=== PATIENT | female | born 1995 | race Hispanic/Latino ===

== ENCOUNTER 2023-02-27 13:30 | Emergency (ER) | payer OTHER, SELFPAY ==
[2023-02-27 13:33] VITALS: BP 116/78; PULSE 77; RESP 16; TEMP 36.8; O2SAT 100
--- NOTE | 2023-02-27 14:20 | ED.GENADULT ---
HPI - General Adult General Chief complaint: Neck Pain/Injury Stated complaint: neck pain Time Seen by Provider: 02/27/23 14:19 Source: patient Mode of arrival: ambulatory Limitations: no limitations History of Present Illness HPI narrative: 27 years old white female came to the ED by private car complaining of right neck pain with limited range of motion, woke up with it this morning. Patient was doing okay last night. She denies any fever, chills, nausea, vomiting, headache, trouble swallowing or breathing. Patient denies any recent new physical activities. Review of Systems Review of Systems: All systems reviewed & are unremarkable except as noted in HPI and below Exam Narrative: General appearance: Well-developed, well-nourished Skin: Normal color Head: Normocephalic, nontraumatic Eyes: Clear conjunctiva ENT: Oropharynx normal, ears normal, nose normal Neck: Mild diffuse tenderness right side of neck and right upper. No bruises, no swelling or rash. Limited range of motion to the left Chest and respiratory: Airway patent, no respiratory distress, no accessory muscle use Heart: Regular rate/rhythm A Vascular: Normal peripheral pulses, normal capillary refill. Musculoskeletal: As above Neurologic: Alert and oriented ?3, MD [facility]ER[facility] IMMUNOLOGY is normal as tested, no gross motor deficit Course Reevaluation(s) Reevaluation #1: Feeling much better after Toradol IM and Valium orally. Date: 02/27/23 Time: 14:52 Vital Signs Vital signs: Vital Signs Temperature 36.8 C 02/27/23 13:33 Pulse Rate 77 02/27/23 13:33 Respiratory Rate 16 02/27/23 13:33 Blood Pressure 116/78 02/27/23 13:33 Pulse Oximetry 100 02/27/23 13:33 Oxygen Delivery Room Air 02/27/23 13:33 Temperature 36.8 C 02/27/23 13:33 Pulse Rate 77 02/27/23 13:33 Respiratory Rate 16 02/27/23 13:33 Blood Pressure 116/78 02/27/23 13:33 Pulse Oximetry 100 02/27/23 13:33 Oxygen Delivery Room Air 02/27/23 13:33 Medical Decision Making [facility] Narrative Medical decision making narrative: Patient presents with right-sided neck pain, wake up with it this morning. She denies any abnormality before going to bed last night. No recent trauma physical examination showed slight tenderness right side of neck without any significant other physical findings. Musculoskeletal strain/sprain is my concern. In the ED patient received 60 mg of Toradol IM, 5 mg of Valium p.o. with remarkable improvement. Patient to be discharged on naproxen and Flexeril. Differential Diagnosis Differential Diagnosis: Cervical strain, sprain. Vital Signs Vital Signs: Vital Signs Temperature 36.8 C 02/27/23 13:33 Pulse Rate 77 02/27/23 13:33 Respiratory Rate 16 02/27/23 13:33 Blood Pressure 116/78 02/27/23 13:33 Pulse Oximetry 100 02/27/23 13:33 Oxygen Delivery Room Air 02/27/23 13:33 Temperature 36.8 C 02/27/23 13:33 Pulse Rate 77 02/27/23 13:33 Respiratory Rate 16 02/27/23 13:33 Blood Pressure 116/78 02/27/23 13:33 Pulse Oximetry 100 02/27/23 13:33 Oxygen Delivery Room Air 02/27/23 13:33 Critical Care Time Critical Care Time Critical Care Time: No Discharge Plan Discharge Clinical Impression: Cervicalgia Patient Disposition: Home, Self-Care Condition: Stable Instructions: Neck Pain (ED) Additional Instructions: Return if symptoms are worsening , call your family physician for appointment, take Tylenol as as needed for aches and pain, continue home medications. Massage, heating pad, hot bath, neck exercise. Prescriptions: New naproxen [Naprosyn] 500 mg tablet 500 mg PO BID PRN (Reason: pain) Qty: 14 0RF
[2023-02-27] MEDS: KETOROLAC (*BKC) 60 MG/2 ML VIAL IM (15:05)
[2023-02-27] MEDS: diazePAM (*CRX) 5 MG TABLET PO (15:06)
== END 2023-02-27 15:23 | disposition home or self-care (01) ==
PROVIDERS: Emergency Provider Emergency Medicine
DX: M54.2 Cervicalgia (principal)
CPT/HCPCS: 96372; 99283; A9270; J1885

== ENCOUNTER 2023-05-04 20:47 | Emergency (ER) | payer SELFPAY ==
[2023-05-04 20:53] VITALS: BP 123/87; PULSE 96; RESP 16; TEMP 36.6; O2SAT 99
--- NOTE | 2023-05-05 00:03 | PC.NURSE ---
Patient called up to triage area for vitals, no answer
--- NOTE | 2023-05-05 00:46 | PC.NURSE ---
Patient again called up to triage for vitals. No answer
== END 2023-05-05 00:03 | disposition left against medical advice (07) ==
DX: R06.02 Shortness of breath (principal)
CPT/HCPCS: 99199